=== PATIENT | male | born 1990 | race Caucasian/White ===

== ENCOUNTER → 2017-02-28 | Outpatient (CLI) | payer BC ==
--- NOTE | 2017-03-01 09:22 | DI ---
Indication: ITS.REASON: [id number] OTHER SPECIFIED INJURIES OF UNSPECIFIED WRIST, HAND AND PROCEDURE: FINGERS LEFT 2 VIEW MIN: Encounter: Initial Comparison: None Findings: There is no acute fracture, dislocation or malalignment identified. Impression: No acute osseous abnormality. .
== END ==
LOC: IMA 17:00
PROVIDERS: ATTEND Family Medicine
DX: Z03.89 Encounter for observation for other suspected diseases and conditions ruled out (principal)